=== PATIENT | male | born 1975 | race Caucasian/White ===

== ENCOUNTER 2017-02-13 20:23 | Emergency (ER) | payer SELFPAY ==
[2017-02-13 20:36] VITALS: TEMP 96.7; O2SAT 100
[2017-02-13] MEDS ORDERED: SODIUM CHLORIDE 0.9% 1000ML 1,000 ML IVS ONE (20:42)
[2017-02-13] MEDS ORDERED: KETOROLAC TROMETHAMINE INJ 30 MG/ML VIAL IV ONE (20:42)
--- NOTE | 2017-02-13 20:53 | ED.PDOC ---
History of Present Illness - General Chief Complaint: Problem Stated Complaint: right flank pain Time Seen by Provider: 02/13/17 20:35 Source: patient, RN notes reviewed, Vital Signs reviewed Exam Limitations: no limitations - History of Present Illness Initial Comments: Patient presents to ER with ~45 minutes of R flank pain. Initially severe, now 2 /10. He went to the bathroom and said his urine looked like coke. No radiation of pain. + nausea and dizziness. No abdominal pain. Normal bowel movements. No similar episodes in the past. Timing/Duration: just prior to arrival Quality: severe, sharpness, steady Onset Location: right flank Radiation: none Activites at Onset: other - Just finished working Improving Factors: nothing Worsening Factors: nothing Associated Symptoms: nausea/vomiting Allergies/Adverse Reactions: Allergies NO KNOWN ALLERGY Allergy (Verified 02/13/17 20:36) Home Medications: Ambulatory Orders Ciprofloxacin [Cipro] 500 mg PO BID #20 tab 02/24/14 Naproxen Sodium [Anaprox Ds] 550 mg PO BID #30 tab 02/24/14 Acetamin W/Cod #3 Tab [Tylenol w/CODEINE #3] 1 ea PO Q4HR PRN #15 tab 02/13/17 Review of Systems - Review of Systems Constitutional: States: no symptoms reported. Denies: chills, fever, malaise Respiratory: States: no symptoms reported Cardiology: States: no symptoms reported Gastrointestinal/Abdominal: States: nausea. Denies: abdominal pain, constipation, diarrhea, vomiting Genitourinary: States: see HPI Musculoskeletal: States: back pain - Right flank Skin: States: no symptoms reported Neurological: States: other - dizziness All other Systems: No Change from Baseline Past Medical History (General) - Patient Medical History Hx Seizures: No Hx Stroke: No Hx Dementia: No Hx Asthma: No Hx of COPD: No Hx Cardiac Disorders: No Hx Congestive Heart Failure: No Hx Pacemaker: No Hx Hypertension: No Hx Thyroid Disease: No Hx Diabetes: No Hx Gastroesophageal Reflux: No Hx Renal Disease: No Hx Cancer: No Hx Hepatitis C: No - Vaccination History Hx Tetanus, Diphtheria Vaccination: No Hx Influenza Vaccination: No - Social History Hx Tobacco Use: Yes Hx Chewing Tobacco Use: No Hx Alcohol Use: No Hx Substance Use: No Hx Substance Use Treatment: No Hx Depression: No Feels Threatened In Home Enviroment: No Feels Threatened In a Relationship: No Hx Physical Abuse: No Hx Emotional Abuse: No Hx Suspected Abuse: No Family Medical History - Family History Mother Living Status: Still Living Physical Exam - Physical Exam General Appearance: Alert, No apparent distress, Well Developed, Well Groomed, Well Nourished, Other - Uncomfortable Eyes, Ears, Nose, Throat Exam: other - dry mucus membranes Cardiovascular/Respiratory: regular rate, rhythm, no M/R/G, no JVD, normal breath sounds, no respiratory distress Gastrointestinal/Abdominal: normal bowel sounds, non tender, soft, no organomegaly, no pulsatile mass Back Exam: normal inspection, no CVA tenderness, no vertebral tenderness Extremity: normal range of motion, normal inspection Neurologic: alert, normal mood/affect, oriented x 3 Skin Exam: normal color, warm/dry Comments: Vital Signs 02/13/17 20:30 Temperature 96.7 F L Pulse Rate [ 50 L monitor] Respiratory 20 Rate Blood Pressure 136/88 [Left Arm] O2 Sat by Pulse 100 Oximetry Progress - Progress Progress: 02/13/17 22:07 He has been pain free since Toradol given - Results/Orders Results/Orders: Laboratory Tests 02/13/17 02/13/17 02/13/17 20:47 20:47 20:58 WBC 6.2 RBC 4.86 Hgb 14.4 Hct 42.4 MCV 87.4 MCH 29.6 MCHC 33.9 RDW 13.6 Plt Count 310 MPV 6.8 L Absolute Neuts (auto) 4.20 Absolute Lymphs (auto) 1.20 Absolute Monos (auto) 0.70 Absolute Eos (auto) 0.10 Absolute Basos (auto) 0.10 Neutrophils % 67.0 Lymphocytes % 19.0 L Monocytes % 11.6 H Eosinophils % 1.5 Basophils % 0.9 Sodium 134 L Potassium 4.0 Chloride 101 Carbon Dioxide 26 Anion Gap 11.0 L BUN 22 H Creatinine 1.09 BUN/Creatinine Ratio 20.2 H Random Glucose 116 H Serum Osmolality 272.5 L Calcium 8.9 Total Bilirubin 1.0 AST 37 ALT 27 Alkaline Phosphatase 67 Serum Total Protein 7.3 Albumin 4.4 Globulin 2.9 Albumin/Globulin Ratio 1.5 Urine Color Yellow Urine Appearance Clear Urine pH 7.5 Ur Specific [place] 1.020 Urine Protein 100 H Urine Glucose (UA) Negative Urine Ketones 15 H Urine Blood Moderate H Urine Nitrite Negative Urine Bilirubin Negative Urine Urobilinogen 0.2 Ur Leukocyte Esterase Negative Urine RBC 10-20 H Urine WBC 0-1 Ur Epithelial Cells 0 Urine Bacteria 1+ Urine Mucus Trace - EKG/XRAY/CT CT Ordered: Yes - 3mm R mid ureteral obstructing stone. Sm R renal stone. Mild hydronephrosis Departure - Departure Clinical Impression: Kidney stone on right side Time of Disposition: 22:08 Disposition: Discharge to Home or Self Care Condition: Good Departure Forms: ED Discharge - Pt. Copy, Patient Portal Self Enrollment Instructions: DI for Kidney Stones Diet: resume usual diet, other - Increase water intake Activity: increase activity as tolerated Referrals: IRMA OROZCO MD [Primary Care Provider] - 1-2 Weeks Prescriptions: Acetamin W/Cod #3 Tab [Tylenol w/CODEINE #3] 1 ea PO Q4HR PRN #15 tab PRN Reason: Moderate To Severe Pain Home Medications: Ambulatory Orders Ciprofloxacin [Cipro] 500 mg PO BID #20 tab 02/24/14 Naproxen Sodium [Anaprox Ds] 550 mg PO BID #30 tab 02/24/14 Acetamin W/Cod #3 Tab [Tylenol w/CODEINE #3] 1 ea PO Q4HR PRN #15 tab 02/13/17
[2017-02-13] MEDS ORDERED: ACETAMINOPHEN W/COD #3 TAB (ER Disp) PO ONE (22:06)
--- NOTE | 2017-02-13 22:13 | CT ---
EXAM DESCRIPTION: Abdoment/Pelvis w/o Contrast CLINICAL HISTORY: 42 years Male R flank pain COMPARISON: None. TECHNIQUE: Contiguous axial images obtained through the abdomen and pelvis without IV contrast. Reformatted images obtained. This exam was performed according to our department optimization program which includes automated exposure control, adjustment of the mA and/or kv according to patient size and/or use of iterative reconstruction technique. FINDINGS: Pleural-based nodular density in the right lung base measuring 5 mm on series 2 image one. Small nodular density in the left lower lobe measuring 5 mm. Recommend follow-up in 12 months if this patient is at high risk for malignancy according to Fleischner protocol. The liver appears unremarkable. The spleen and pancreas appear unremarkable. No adrenal masses. Mild right hydronephrosis with an obstructing 3 mm mid ureteral calculus. Additional nonobstructing right renal calculus. The gallbladder is visualized. No aneurysmal dilatation of the aorta. No bowel obstruction. No free pelvic fluid. Unremarkable appendix. Bilateral inguinal hernias containing fat. IMPRESSION: Mild right hydronephrosis with an obstructing 3 mm mid ureteral calculus Nonobstructing right renal stone Noncalcified nodules in the lung bases. Recommend follow-up in 12 months if this patient is at high risk for malignancy. No follow-up warranted if this patient is at low risk. 2017 Fleischner Society Recommendations for Multiple Solid Lung Nodules Follow-Up base on size (average of long- and short-axis diameters). Use most suspicious nodule for followup. Nodule Size <6 mm Low-Risk Patient: No routine follow-up Nodule Size <6 mm High-Risk Patient: Optional CT at 12 months Nodule Size 6-8 mm Low-Risk Patient: CT at 3-[address] at 18-24 months Nodule Size 6-8 mm High-Risk Patient: CT at 3-6 months then at 18-24 months Nodule Size (mm) >8 Low-Risk Patient: CT at 3-6 months, then consider CT at 18-24 months Nodule Size (mm) >8 High-Risk Patient: CT at 3-6 months, then at 18-24 months Electronically signed by: Veronica Hartman 02/13/2017 10:11 PM CDT
[2017-02-13 22:16] VITALS: BP 149/64
== END 2017-02-13 22:16 | disposition home or self-care (01) ==
LOC: ER 20:23
DX: N13.2 Hydronephrosis with renal and ureteral calculous obstruction (principal); Z87.891 Personal history of nicotine dependence
CPT/HCPCS: 36415; 74176; 80053; 81001; 85025; J1885; J7030